=== PATIENT | female | born 1985 | race Two or more races ===

== ENCOUNTER 2020-12-08 00:28 | Emergency (ER) | payer MEDICAID, OTHER ==
[~2020-12-08] VITALS: Ht 154.9 cm; Wt 55.3 kg
[2020-12-08 00:29] VITALS: BP 115/79
[2020-12-08] MEDS ORDERED: TETANUS-DIPTH-ACEL PERTUSSIS 0.5ML SYR Tdap IM ONE (01:00)
[2020-12-08] MEDS ORDERED: ACETAMINOPHEN 500 MG TAB PO ONE (01:00)
== END 2020-12-08 04:58 | disposition home or self-care (01) ==
LOC: ER 00:28
DX: S01.01XA Laceration without foreign body of scalp, initial encounter (principal); F17.210 Nicotine dependence, cigarettes, uncomplicated; W01.0XXA Fall on same level from slipping, tripping and stumbling without subsequent striking against object, initial encounter; Y93.89 Activity, other specified; Y92.89 Other specified places as the place of occurrence of the external cause; Y99.8 Other external cause status
CPT/HCPCS: 12001; 70450; 72125

== ENCOUNTER 2020-12-20 11:34 | Emergency (ER) | payer MEDICAID ==
[~2020-12-20] VITALS: Ht 160 cm; Wt 55.3 kg
[2020-12-20 11:37] VITALS: BP 116/77
== END 2020-12-20 13:42 | disposition home or self-care (01) ==
LOC: ER 11:34
DX: S01.01XD Laceration without foreign body of scalp, subsequent encounter (principal); F17.210 Nicotine dependence, cigarettes, uncomplicated; X58.XXXD Exposure to other specified factors, subsequent encounter